=== PATIENT | female | born 1955 ===

== ENCOUNTER → 2018-05-08 | Outpatient (CLI) | payer OTHER ==
--- NOTE | 2018-05-08 11:44 | CPEEG ---
[f rep st] ELECTROENCEPHALOGRAM DATE OF STUDY: 05/08/2018 INTERPRETATION: This EEG contains a mild degree of focal slowing over the left temporal head region. These findings being consistent with a mild focal disturbance of cerebral function in this region. There were no potentially epileptogenic abnormalities present during the awake or sleep recordings. REPORT: This EEG contains 10 Hz alpha activity to the posterior head regions. The primary feature o f this recording was the presence of a mild degree of focal slowing over the left temporal head regio n composed of intermittent, polymorphic theta frequency activity. There was no epileptiform activati on at rest, during hyperventilation or photic stimulation. The patient became drowsy and fell asleep during the recording. There was no abnormal activation during drowsiness, sleep, or during times of arousal. Copy requested to: Dr. Dallin Ness Neurology /[id number]/MODL
== END ==
LOC: FCPNEURO 07:39
PROVIDERS: ATTEND Psychiatry & Neurology Neurology
DX: G40.209 Localization-related (focal) (partial) symptomatic epilepsy and epileptic syndromes with complex partial seizures, not intractable, without status epilepticus (principal)